=== PATIENT | male | born 1945 | race Caucasian/White ===

== ENCOUNTER 2020-11-18 13:47 | Inpatient (IN) ==
[2020-11-18] MEDS ORDERED: ONDANSETRON INJ 2 MG/ML 2 ML VIAL IV STA (14:18)
[2020-11-18] MEDS ORDERED: SODIUM CHLORIDE 0.9% 1000ML 1,000 ML IV STA (14:18)
--- NOTE | 2020-11-18 14:26 | Emergency Department Note ---
Impression & Plan Pancreatitis, Weakness, Portal vein thrombosis ED Provider Note Provider: Jose Jiménez MD DATE OF SERVICE: 11/18/2020 CHIEF COMPLAINT: Epigastric pain, nausea, weakness HISTORY OF PRESENT ILLNESS: Patient is a 75-year-old gentleman history of smoking and [id number] diabetes presenting here today with reporting over the past weeks developed epigastric discomfort with nausea. States he seemed to be constipated took a laxative yesterday and now has loose stools today. States the pain comes and goes worse with eating. States anytime he eats something he gets nauseous and has more epigastric pain. Irma-Beverly has helped some. Denies any radiation of the lower abdomen or back. Denies any chest pain or shortness of breath. Reports increased generalized fatigue but denies any URI symptoms. States is a chronic smoking cough and is still a smoker. Patient states he was hospitalized for somewhat similar symptoms about 3 weeks ago in [place] and diagnosed with pancreatitis. Had an outpatient MRI a week ago and is scheduled to see a GI doctor over the next several days in [place]. No vomiting is reported. No rashes reported. is otherwise without similar symptoms. Patient states he has never had pancreatitis before this. REVIEW OF SYSTEMS: A total of 10 review of systems was obtained and negative except as stated above in the HPI. PAST MEDICAL HISTORY: As noted above MEDICATIONS: Reviewed home medications SOCIAL HISTORY:smoker, lives at home with PHYSICAL EXAM: GENERAL: alert and oriented in no acute distress on stretcher Head: normocephalic and atraumatic EYES: No injection, discharge or icterus. NECK: Trachea midline. Supple. ENT: Mucous membranes pink and moist. LUNGS: Airway patent. No retractions. Breath sounds with slight expiratory wheeze HEART: Regular rate and rhythm. No chest wall tenderness ABDOMEN: Soft without guarding with some very slight to minimal epigastric discomfort. No lower abdominal tenderness. No flank tenderness. SKIN: Acyanotic, warm, dry, without rashes EXTREMITIES: Without swelling, tenderness or deformity NEUROLOGICAL: No focal deficits. No aphasia. No facial droop or slurred speech. EK bpm normal sinus rhythm. No PVC or PAC. No acute ST segment elevation or depression. Left axis is noted. QTc 432. No priors available. CONTINUOUS CARDIAC MONITORING: was ordered and showed a heart rate of bpm in Patient's laboratory studies and imaging reviewed. Differential includes Appendicitis, testicular torsion, infections, diverticulitis, UTI, obstruction, mesenteric ischemia, aortic pathology, inflammatory bowel disease, renal colic, PUD, pancreatitis, biliary pathology, hernia, volvulus, constipation, as well as other pathologies. IMPRESSION/MEDICAL DECISION MAKING: Patient presents with nausea and epigastric discomfort particular with eating. Recent history of pancreatitis. Patient does endorse nausea now and minimal pain. He declines pain medicine here. Not peritoneal. Records at [place] not available to me here. Will attempt to obtain records from the other facility. Patient is nontoxic-appearing. Afebrile. Blood work and EKG were completed. Lower suspicion is ACS or pulmonary cause. Troponin was sent for completeness. Question possible pancreas inflammation or possible gastritis. Patient given some fluids here. Lyme screen will be sent as well as anaplasmosis given the generalized weakness complaints. Laboratory studies do reveal a leukocytosis of 14.6 but no anemia. No significant electrolyte abnormality noted. No bilirubin elevation or LFT abnormalities. Lyme screen negative as was anaplasmosis smear. Troponin is negative and again I finds unlikely this is cardiac related. Lipase elevation of 1894 again is concerning for pancreatitis. Without a bilirubin elevation find it less likely to be obstructive biliary pathology. Question if his recent change to diabetes medication has prompted these episodes of pancreatitis. CT scan per radiology shows evidence of acute pancreatitis. No fluid collections were noted by radiology. They question a small portal vein thrombus. Some slight dilation of the left lobe of the liver biliary tree were noted as well. Given this his complaints also with need likely to change diabetic medications patient wished for further care here at the hospital. Hospitalists contacted and discussed starting a heparin drip which I ordered given the question of portal vein thrombus.. DIAGNOSIS: Pancreatitis, weakness, portal vein thrombus DISPOSITION: Hospitalist will evaluate Patient was agreeable with this plan. 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 Beliefs That Will Affect Care: None Current Living Situation: Significant Other Other Information That Helps Us Care for You: No Feels Safe at Home: Yes Safety Concerns: Feels Safe At This Time Assistive Devices: Denture - Upper, Denture - Lower and Glasses Allergies Allergies Allergy/AdvReac Type Severity Reaction Status Date / Time No Known Allergies Allergy Unverified 11/18/20 15:19 Home Meds Home Medications Medication Instructions Recorded Confirmed brimonidine 0.2 % eye drops 1 drp OPR BID 11/18/20 11/18/20 dorzolamide 2 % eye drops (Trusopt) 1 drp OPL TID 11/18/20 11/18/20 glipizide 5 mg tablet, extended 5 mg PO BID 11/18/20 11/18/20 release 24 hr (Glucotrol XL) lisinopril 10 mg tablet (Zestril) 10 mg PO QAM 11/18/20 11/18/20 metformin 1,000 mg tablet 1,000 mg PO BID 11/18/20 11/18/20 rosuvastatin 5 mg tablet (Crestor) 5 mg PO HS 11/18/20 11/18/20 semaglutide (Ozempic) 0.25 mg SUBCUT WK 11/18/20 11/18/20 timolol maleate 0.5 % eye drops 1 drp OPR BID 11/18/20 11/18/20 (Timoptic) Results & Data (ED) Vital Signs Vital Signs - 24 hr 11/18/20 13:49 11/18/20 13:59 11/18/20 15:02 Temperature 36.5 C Temperature Source Temporal Artery Scan Pulse Rate 100 H 88 Pulse Rate [Right Finger] 96 H 88 Pulse Rate from SpO2 Sensor Pulse Rhythm Regular Pulse Rhythm [Right Finger] Regular Pulse Strength [Right Finger] Normal Respiratory Rate 18 18 18 Respiratory Effort / Characteristics Non-Labored Spontaneous Respiratory Depth Normal Respiratory Pattern Regular Blood Pressure 127/77 Blood Pressure [Left Arm] 125/74 122/77 Blood Pressure Mean 93 Blood Pressure Mean [Left Arm] 91 92 Blood Pressure Position [Left Arm] Lying Sitting Pulse Oximetry 99 99 98 Oxygen Delivery Method Room Air Room Air Room Air Sepsis Recent Fever Within 48 Hours No Sepsis New/Unexplained Change in Mental Status No Sepsis Action Taken by Nursing No Action Required 11/18/20 16:24 Temperature Temperature Source Pulse Rate 93 H Pulse Rate [Right Finger] Pulse Rate from SpO2 Sensor 92 H Pulse Rhythm Pulse Rhythm [Right Finger] Pulse Strength [Right Finger] Respiratory Rate 15 Respiratory Effort / Characteristics Respiratory Depth Respiratory Pattern Blood Pressure 143/72 H Blood Pressure [Left Arm] Blood Pressure Mean 95 Blood Pressure Mean [Left Arm] Blood Pressure Position [Left Arm] Pulse Oximetry 97 Oxygen Delivery Method Sepsis Recent Fever Within 48 Hours Sepsis New/Unexplained Change in Mental Status Sepsis Action Taken by Nursing Laboratory Data Result diagrams: 11/18/20 13:59 11/18/20 13:59 Lab Results 11/18/20 11/18/20 11/18/20 Range/Units 13:59 13:59 13:59 WBC 14.66 H (4.8-10.8) K/uL RBC 4.55 L (4.7-6.1) M/uL Hgb 14.4 (14.0-18.0) g/dL Hct 41.3 L (42-52) % MCV 90.8 (80-100) fL MCH 31.6 (25-34) pg MCHC 34.9 (32-36) g/dL RDW Std Deviation 41.4 (36.4-46.3) fL RDW Coeff of Shahzad 12.4 (11.5-14.5) % Plt Count 268 (130-400) K/uL MPV 10.6 H (7.4-10.4) fL Immature Gran % (Auto) 0.3 % Neut % (Auto) 64.9 % Lymph % (Auto) 22.6 % Bucks % (Auto) 9.7 % Eos % (Auto) 2.2 % Baso % (Auto) 0.3 % Neut # (Auto) 9.53 H (1.4-6.5) K/uL Lymph # (Auto) 3.31 (1.2-3.4) K/uL Bucks # (Auto) 1.42 H (0.11-0.59) K/uL Eos # (Auto) 0.32 (0-0.5) K/uL Baso # (Auto) 0.04 (0-0.2) K/uL Immature Gran # (Auto) 0.04 H (0.00-0.02) K/uL Sodium 137 (136-145) mmol/L Potassium 4.2 (3.5-5.1) mmol/L Chloride 107 (98-107) mmol/L Carbon Dioxide 24 (21-32) mmol/L Anion Gap 6.0 (3-11) BUN 15 (7-18) mg/dl Creatinine 1.02 (0.6-1.4) mg/dl Est Cr Clr Drug Dosing 72.8 ml/min Est GFR ( Amer) 82.9 ml/min Est GFR (Non-Af Amer) 71.6 ml/min BUN/Creatinine Ratio 14.5 (10-20) Glucose 192 H (70-99) mg/dl Calcium 9.0 (8.5-10.1) mg/dl Total Bilirubin 0.6 (0.2-1) mg/dl AST 11 L (15-37) U/L ALT 22 (12-78) U/L Alkaline Phosphatase 61 (45-117) U/L Troponin I < 0.015 (0-0.045) ng/ml Total Protein 7.9 (6.4-8.2) gm/dl Albumin 3.7 (3.4-5.0) gm/dl Globulin 4.2 H (2.5-4.0) gm/dl Albumin/Globulin Ratio 0.9 (0.9-2) Lipase 1894 H (73-393) U/L Anaplasma Smear See Comment Lyme Disease IgG Ab Negative (Negative) Lyme Disease IgM Ab Negative (Negative) COVID-19 Eval Order SARS-CoV-2 (PCR) (Negative) 11/18/20 11/18/20 11/18/20 Range/Units 13:59 13:59 13:59 WBC (4.8-10.8) K/uL RBC (4.7-6.1) M/uL Hgb (14.0-18.0) g/dL Hct (42-52) % MCV (80-100) fL MCH (25-34) pg MCHC (32-36) g/dL RDW Std Deviation (36.4-46.3) fL RDW Coeff of Shahzad (11.5-14.5) % Plt Count (130-400) K/uL MPV (7.4-10.4) fL Immature Gran % (Auto) % Neut % (Auto) % Lymph % (Auto) % Bucks % (Auto) % Eos % (Auto) % Baso % (Auto) % Neut # (Auto) (1.4-6.5) K/uL Lymph # (Auto) (1.2-3.4) K/uL Bucks # (Auto) (0.11-0.59) K/uL Eos # (Auto) (0-0.5) K/uL Baso # (Auto) (0-0.2) K/uL Immature Gran # (Auto) (0.00-0.02) K/uL Sodium (136-145) mmol/L Potassium (3.5-5.1) mmol/L Chloride (98-107) mmol/L Carbon Dioxide (21-32) mmol/L Anion Gap (3-11) BUN (7-18) mg/dl Creatinine (0.6-1.4) mg/dl Est Cr Clr Drug Dosing ml/min Est GFR ( Amer) ml/min Est GFR (Non-Af Amer) ml/min BUN/Creatinine Ratio (10-20) Glucose (70-99) mg/dl Calcium (8.5-10.1) mg/dl Total Bilirubin (0.2-1) mg/dl AST (15-37) U/L ALT (12-78) U/L Alkaline Phosphatase (45-117) U/L Troponin I (0-0.045) ng/ml Total Protein (6.4-8.2) gm/dl Albumin (3.4-5.0) gm/dl Globulin (2.5-4.0) gm/dl Albumin/Globulin Ratio (0.9-2) Lipase (73-393) U/L Anaplasma Smear Cancelled Lyme Disease IgG Ab (Negative) Lyme Disease IgM Ab (Negative) COVID-19 Eval Order Covid19 at [facility] SARS-CoV-2 (PCR) NEGATIVE (Negative) Administered Medications Dorzolamide HCl (Dorzolamide Hcl 2% Oph Soln 10 Ml Btl) 1 drops OPL TID LORI Stop: 12/18/20 20:59 Last Admin: 11/18/20 20:41 Dose: 1 drops Documented by: [id number] Heparin Sodium/Dextrose (Heparin Sodium/Dextrose) 25,000 units in 500 mls @ 20 mls/hr IV .Q24H LORI; Protocol Stop: 12/18/20 16:59 Last Titration: 11/18/20 18:57 Dose: 1,000 units/hr, 20 mls/hr Documented by: [id number] Cosigned by: [id number] Admin: 11/18/20 17:10 Dose: 1,000 units/hr, 20 mls/hr Documented by: [id number] Cosigned by: [id number] Insulin Aspart (Insulin Aspart 100 Units/Ml 3 Ml Pen) 0 units SC Q6 LORI Stop: 12/18/20 18:59 Last Admin: 11/18/20 19:40 Dose: Not Given Documented by: [id number] Cosigned by: [id number] Nicotine (Nicotine 21 Mg/24 Hr Tdsy) 21 mg TD QAM LORI Stop: 12/18/20 16:44 Last Admin: 11/18/20 17:10 Dose: 21 mg Documented by: [id number] Rosuvastatin Calcium (Rosuvastatin Calcium 5 Mg Tab) 5 mg PO HS LORI Stop: 12/18/20 20:59 Last Admin: 11/18/20 20:43 Dose: 5 mg Documented by: [id number] Timolol Maleate (Timolol Maleate 0.5% Op Soln 5 Ml Btl) 1 drops OP BID LORI Stop: 12/18/20 20:59 Last Admin: 11/18/20 20:41 Dose: 1 drops Documented by: [id number] Discontinued Medications Heparin Sodium/Dextrose (Heparin Iv Adult Wt-Based Low-Dose *No* Bolus Protocol) 1 ea N/A ONE ONE; Protocol Stop: 11/18/20 16:55 Last Admin: 11/18/20 18:53 Dose: Not Given Documented by: [id number] Sodium Chloride (Nss 1000ml) 1,000 mls @ 999 mls/hr IV .Q1H1M STA Stop: 11/18/20 15:18 Last Infusion: 11/18/20 15:35 Dose: 0 mls/hr Documented by: [id number] Admin: 11/18/20 14:28 Dose: 999 mls/hr Documented by: [id number] Ioversol (Optiray 320 100ml) 94 ml IV ONCE ONE Stop: 11/18/20 15:49 Last Admin: 11/18/20 15:48 Dose: 94 ml Documented by: [id number] Ondansetron HCl (Ondansetron Inj 2 Mg/Ml 2 Ml Vial) 4 mg IV NOW STA Stop: 11/18/20 14:19 Last Admin: 11/18/20 14:29 Dose: 4 mg Documented by: [id number] Imaging Data Radiologist's Impression: Abdomen/Pelvis CT 11/18/20 14:18 CT abd pelvis IV con only CLINICAL HISTORY: epigastric pain, nausea, hx pancreatitis COMPARISON STUDY: None. TECHNIQUE: A dose lowering technique was utilized adhering to the principles of ALARA. CT DOSE: 564.18 mGy.cm FINDINGS: Lower chest: Limited evaluation of lung bases shows minimal atelectasis at dependent portions of bilateral lower lobes. No large infiltrates or consolidative lesions are seen.. Liver: Liver is normal in size with mild diffuse decrease in attenuation of its parenchyma. 6 mm hypoattenuating lesion is seen within the right liver lobe. Minimal prominence of the central intrahepatic biliary duct are seen within left lobe of the liver. Gallbladder: Is contracted which significantly limits evaluation. Spleen: Normal in size and attenuation. Pancreas: Lobulated contour of the pancreatic gland is preserved. Mild hazy fat stranding is seen surrounding the pancreatic head and body which might represent acute pancreatitis or sequela from recent pancreatitis. No definite peripancr eatic or intrapancreatic hypoattenuating collections seen. Prominence of the pancreatic duct is seen within pancreatic body and head. 4 mm calculus is seen within main pancreatic duct at the region of pancreatic head (2/33). Also there is few calculi are seen within distal aspect of the common bile duct coursing through pancreatic head associated with minimal prominence of the more proximal common biliary duct measuring up to 7 mm in size. Adrenal glands: Unremarkable. Kidneys: There is symmetric renal cortical enhancement. The kidneys are normal in size without hydronephrosis.Punctate nonobstructive nephrolithiasis is seen in bilaterally. Few cortical renal cysts are also seen within right and left kidneys, largest is measuring 2.0 cm and seen on the right. Pelvic viscera: Urinary bladder is partially filled with urine and show mild diffuse thickening of its wall which could be due to long-standing enlarged prostate gland. Bowel: The small bowel and colon are normal in course and caliber. Appendix shows normal morphology and gas filled. Mild diverticulosis of sigmoid colon is seen without evidence of diverticulitis. Peritoneum: There is no intraperitoneal free air or abdominal ascites. Vasculature: The abdominal aorta is normal in course and caliber. Focal filling defect is seen within proximal aspect of the portal vein at its confluence with splenic vein which could be due to inflammatory process within adjacent pancreas (2/20). Above-mentioned findings are better visualized on sagittal reconstruction (image 269 out of 513). Adenopathy: Few small retroperitoneal lymph nodes are seen, measuring less than 1 cm in short axis and nonpathological by CT size criteria. Skeletal structures: Mild degenerative changes of the spine. IMPRESSION: 1. Inflammatory changes surrounding the pancreas and calcifications/stones within proximal aspect of the pancreatic duct and distal common bile duct. No peripancreatic fluid collection or evidence of necrosis of pancreatic parenchyma is seen at this time.. Small filling defect is seen within portal vein, at the connection with splenic vein likely representing portal vein thrombosis. Findings will be sent to the emergency department. 2. Hepatic steatosis. Mild dilatation of the central intrahepatic biliary ducts within left lobe of the liver. Further evaluation with ultrasound might be considered if clinically indicated. 3. Contracted gallbladder which limits evaluation. 4. Nondilated loops of bowel. Normal appendix. 5. The rest of findings as above. ACT 112: Negative or not required by law. The above report was generated using voice recognition software. It may contain grammatical, syntax or spelling errors. Electronically signed by: Grisel Roberts DO 11/18/2020 4:18 PM Discharge Plan Visit Data Chief Complaint: Nausea Stated Complaint: CRAMPS,NAUSEA,WEAK ED Provider: Jose Jiménez Discharge Problem: Pancreatitis, Weakness, Portal vein thrombosis Patient Disposition: Admitted As Inpatient Discharge Instructions Interventions: ED Discharge Assessment Last Done: 11/18/20 17:55
[2020-11-18 14:28] LABS: Basophils # (auto) 0.04 K/uL (0-0.2); Basophils % (auto) 0.3 %; Eosinophils # (auto) 0.32 K/uL (0-0.5); Eosinophils % (auto) 2.2 %; Hematocrit (blood only) 41.3 % (42-52); Hemoglobin 14.4 g/dL (14.0-18.0); Immature Granulocytes # (auto) 0.04 K/uL (0.00-0.02); Immature Granulocytes % (auto) 0.3 %; Lymphocytes # (auto) 3.31 K/uL (1.2-3.4); Lymphocytes % (auto) 22.6 %; Mean Corpuscular Hemoglobin 31.6 pg (25-34); Mean Corpuscular Hgb Conc 34.9 g/dL (32-36); Mean Corpuscular Volume 90.8 fL (80-100); Mean Platelet Volume 10.6 fL (7.4-10.4); Monocytes # (auto) 1.42 K/uL (0.11-0.59); Monocytes % (auto) 9.7 %; Neutrophils # (auto) 9.53 K/uL (1.4-6.5); Neutrophils % (auto) 64.9 %; Platelet Count 268 K/uL (130-400); RDW Coefficient of Variation 12.4 % (11.5-14.5); RDW Standard Deviation 41.4 fL (36.4-46.3); Red Blood Count 4.55 M/uL (4.7-6.1); White Blood Count 14.66 K/uL (4.8-10.8)
[2020-11-18 14:38] LABS: Alanine Aminotransferase 22 U/L (12-78); Albumin Level 3.7 gm/dl (3.4-5.0); BUN Creatinine Ratio 14.5 (10-20); Blood Urea Nitrogen 15 mg/dl (7-18); Carbon Dioxide 24 mmol/L (21-32); Chloride 107 mmol/L (98-107); Creatinine Clr Calc Pharmacy 72.8 ml/min; Est GFR (African American) 82.9 ml/min; Est GFR (Non-African American) 71.6 ml/min; Glucose 192 mg/dl (70-99); Potassium 4.2 mmol/L (3.5-5.1); Sodium 137 mmol/L (136-145)
[2020-11-18 14:44] LABS: Albumin Globulin Ratio 0.9 (0.9-2); Alkaline Phosphatase 61 U/L (45-117); Aspartate Aminotransferase 11 U/L (15-37); Bilirubin,Total 0.6 mg/dl (0.2-1); Globulin 4.2 gm/dl (2.5-4.0); Lipase 1894 U/L (73-393); Total Protein 7.9 gm/dl (6.4-8.2); Troponin I < 0.015 ng/ml (0-0.045)
[2020-11-18 15:23] LABS: Lyme Ab IgG w/WB Rflx Negative (Negative); Lyme Ab IgM w/WB Rflx Negative (Negative)
[2020-11-18] MEDS ORDERED: OPTIRAY 320 100ml IV ONE (15:48)
--- NOTE | 2020-11-18 16:20 | CT Scan Report ---
CT abd pelvis IV con only CLINICAL HISTORY: epigastric pain, nausea, hx pancreatitis COMPARISON STUDY: None. TECHNIQUE: A dose lowering technique was utilized adhering to the principles of ALARA. CT DOSE: 564.18 mGy.cm FINDINGS: Lower chest: Limited evaluation of lung bases shows minimal atelectasis at dependent portions of bila teral lower lobes. No large infiltrates or consolidative lesions are seen.. Liver: Liver is normal in size with mild diffuse decrease in attenuation of its parenchyma. 6 mm hypo attenuating lesion is seen within the right liver lobe. Minimal prominence of the central intrahepati c biliary duct are seen within left lobe of the liver. Gallbladder: Is contracted which significantly limits evaluation. Spleen: Normal in size and attenuation. Pancreas: Lobulated contour of the pancreatic gland is preserved. Mild hazy fat stranding is seen demar rounding the pancreatic head and body which might represent acute pancreatitis or sequela from recent pancreatitis. No definite peripancreatic or intrapancreatic hypoattenuating collections seen. Prominence of the pancreatic duct is seen within pancreatic body and head. 4 mm calculus is seen with in main pancreatic duct at the region of pancreatic head (2/33). Also there is few calculi are seen w ithin distal aspect of the common bile duct coursing through pancreatic head associated with minimal prominence of the more proximal common biliary duct measuring up to 7 mm in size. Adrenal glands: Unremarkable. Kidneys: There is symmetric renal cortical enhancement. The kidneys are normal in size without hydron ephrosis.Punctate nonobstructive nephrolithiasis is seen in bilaterally. Few cortical renal cysts are also seen within right and left kidneys, largest is measuring 2.0 cm and seen on the right. Pelvic viscera: Urinary bladder is partially filled with urine and show mild diffuse thickening of it s wall which could be due to long-standing enlarged prostate gland. Bowel: The small bowel and colon are normal in course and caliber. Appendix shows normal morphology a nd gas filled. Mild diverticulosis of sigmoid colon is seen without evidence of diverticulitis. Peritoneum: There is no intraperitoneal free air or abdominal ascites. Vasculature: The abdominal aorta is normal in course and caliber. Focal filling defect is seen within proximal aspect of the portal vein at its confluence with splenic vein which could be due to inflammatory process within adjacent pancreas (2/20). Above-mentioned fin dings are better visualized on sagittal reconstruction (image 269 out of 513). Adenopathy: Few small retroperitoneal lymph nodes are seen, measuring less than 1 cm in short axis an d nonpathological by CT size criteria. Skeletal structures: Mild degenerative changes of the spine. IMPRESSION: 1. Inflammatory changes surrounding the pancreas and calcifications/stones within proximal aspect of the pancreatic duct and distal common bile duct. No peripancreatic fluid collection or evidence of n ecrosis of pancreatic parenchyma is seen at this time.. Small filling defect is seen within portal ve in, at the connection with splenic vein likely representing portal vein thrombosis. Findings will be sent to the emergency department. 2. Hepatic steatosis. Mild dilatation of the central intrahepatic biliary ducts within left lobe of the liver. Further evaluation with ultrasound might be considered if clinically indicated. 3. Contracted gallbladder which limits evaluation. 4. Nondilated loops of bowel. Normal appendix. 5. The rest of findings as above. ACT 112: Negative or not required by law. The above report was generated using voice recognition software. It may contain grammatical, syntax o r spelling errors. Electronically signed by: Grisel Roberts DO 11/18/2020 4:18 PM
[2020-11-18 16:35] LABS: Appearance Urine Clear (Clear); Bilirubin Urine Negative (Negative); Blood Urine Negative (Negative); Color Urine Yellow; Glucose Urine UA Negative (Negative); Ketones Urine Negative (Negative); Leukocyte Esterase Urine Negative (Negative); Nitrite Urine Negative (Negative); Protein Urine Negative (Negative); Specific Gravity Urine 1.017 (1.000-1.030); Urobilinogen Urine Negative (Negative)
[2020-11-18] MEDS ORDERED: Heparin IV Adult Wt-Based Low-Dose *NO* Bolus Protocol ONE (16:54)
[2020-11-18] MEDS ORDERED: HEPARIN SODIUM/DEXTROSE 25,000 UNITS/500 ML BAG IV SCH (17:00)
--- NOTE | 2020-11-18 17:07 | Electrocardiogram Report ---
Test Reason : Blood Pressure : / mmHG Vent. Rate : 092 BPM Atrial Rate : 092 BPM P-R Int : 204 ms QRS Dur : 086 ms QT Int : 350 ms P-R-T Axes : 072 -42 068 degrees QTc Int : 432 ms Poor data quality, interpretation may be adversely affected Normal sinus rhythm with 1st degree A-V block Left axis deviation Abnormal ECG No previous ECGs available Confirmed by Mir Louise ([id number]) on 11/18/2020 5:06:58 PM Referred By: REFERRED SELF Confirmed By:Mir Louise
--- NOTE | 2020-11-18 17:07 | History & Physical Report ---
Date of Service November 18, 2020 Assessment & Plan (1) Pancreatitis: Plan: Patient is a pleasant 75 yo male who is admitted with recurrent pancreatitis. will be placed on NPO IVF. and will monitor. Ozempic may be a culprit. will likely need to hold this medication (2) Portal vein thrombosis: Plan: Found incifiental finding. Azeem place on IV heparin (3) Type 2 diabetes mellitus: Plan: will obtain A1C. consult glycemic control History of Present Illness Chief Complaint: pancreatitis Primary Care Provider: Chucho Phoenix 75 yo male who was recently admitted for 3 days with pancreatitis at an outside facilty 4 weeks ago presents to the hospital with 1 week presentation of worsening epigastirc abdominal pain that worsens with eating. Patient reports being constipated and took a laxative yesterday. Now has loose stools today. States the pain comes and goes but worsens after eating. It is accompanied by nausea. [place] has helped some. Denies any radiation of the lower abdomen or back. Denies any chest pain or shortness of breath. Duing this time, patient reports increased fatigue. Had an outpatient MRI a week ago and is scheduled to see a GI doctor over the next several days in [place]. No vomiting is reported. No rashes reported. is otherwise without similar symptoms. Patient states he has never had pancreatitis before his prior episode. Patient denies fever, chills, nausea, vomiting. Allergies Allergy/AdvReac Type Severity Reaction Status Date / Time No Known Allergies Allergy Unverified 11/18/20 15:19 Home Medications Medication Instructions Recorded Confirmed Type brimonidine 0.2 % eye drops 1 drp OPR BID 11/18/20 11/18/20 History dorzolamide 2 % eye drops (Trusopt) 1 drp OPL TID 11/18/20 11/18/20 History glipizide 5 mg tablet, extended 5 mg PO BID 11/18/20 11/18/20 History release 24 hr (Glucotrol XL) lisinopril 10 mg tablet (Zestril) 10 mg PO QAM 11/18/20 11/18/20 History metformin 1,000 mg tablet 1,000 mg PO BID 11/18/20 11/18/20 History rosuvastatin 5 mg tablet (Crestor) 5 mg PO HS 11/18/20 11/18/20 History semaglutide (Ozempic) 0.25 mg SUBCUT WK 11/18/20 11/18/20 History timolol maleate 0.5 % eye drops 1 drp OPR BID 11/18/20 11/18/20 History (Timoptic) Past Med/Surg History Social History Smoking Status: Current every day smoker Cigarettes Per Day: 1-1.5 packs per day; Do You Dip or Chew Tobacco: No; Hx Alcohol Use: Yes Hx Substance Use: No Preferred Language: Greenlandic Communication Ability: Effective Supervisor [employer] Required: No Beliefs That Will Affect Care: None Current Living Situation: Significant Other Other Information That Helps Us Care for You: No Feels Safe at Home: Yes Safety Concerns: Feels Safe At This Time Assistive Devices: Denture - Upper, Denture - Lower and Glasses Review of Systems Constitutional: no fever and no body aches Eyes: no blind spots and no diplopia Ear, Nose, Mouth, Throat: no ear pain and no ear trauma Respiratory: no cough and no change in sputum Cardiovascular: no chest pain Gastrointestinal: + abdominal pain and + nausea Genitourinary: no dysuria Musculoskeletal: no radicular pain Integumentary: no rash Neurologic: no gait abnormality and no falls Psychiatric: no behavioral changes Endocrine: no fatigue Allergy / Immunological: no lip swelling Physical Exam Constitutional: WD/WN, vitals as above Eyes: PERRL, conjunctivae normal, anicteric sclerae ENMT: external ear and nose normal, oropharynx normal Neck: trachea midline, no thyromegaly Respiratory: normal respiratory effort, lungs clear to auscultation Cardiovascular: RRR, no murmur, no edema Gastrointestinal (Abdomen): normal bowel sounds, soft, nontender, no hepatosplenomegaly Musculoskeletal: no cyanosis or clubbing, extremities motor strength 5/5 Skin: no rashes, warm and dry Neurologic: PERRL, EOMI, accommodation nl, no face palsy, no dysarthria Psychiatric: A+Ox3, euthymic affect Lymphatic: no cervical or axillary lymphadenopathy Results & Data Results & Data ([facility]) Vital Signs (Past 12 Hours) Vital Signs Temp Pulse Pulse Resp BP BP Pulse Ox 11/18/20 16:24 93 H 15 143/72 H 97 11/18/20 15:02 88 88 18 122/77 98 11/18/20 13:59 96 H 18 125/74 99 11/18/20 13:49 36.5 C 100 H 18 127/77 99 PG Care Time/CCT Total # of Minutes Spent Total Time Spent with Patient: Total time spent is greater than 50% in coordination of care (as documented) at patient's floor/unit and/or counseling patient: Coding Level of Care Code 23430 Initial Inpt Care Lvl 3 Diagnoses Pancreatitis K85.90 Chronicity: acute Pancreatitis type: unspecified pancreatitis type Portal vein thrombosis I81 Type 2 diabetes mellitus E11.9 (1) Pancreatitis Chronicity: acute Pancreatitis type: unspecified pancreatitis type
[2020-11-18] MEDS: NICOTINE 21 MG/24 HR TDSY TD SCH (17:10)
[2020-11-18] MEDS ORDERED: PHARMACY GLYCEMIC MGMT CONSULT PRN (17:18)
[2020-11-18] MEDS ORDERED: ACETAMINOPHEN 325 MG TAB PO PRN (17:23)
[2020-11-18] MEDS ORDERED: MoRPHine SULFATE 2 MG/ML CARP IV PRN (18:07)
[2020-11-18] MEDS ORDERED: ONDANSETRON INJ 2 MG/ML 2 ML VIAL IV PRN (18:07)
[2020-11-18] MEDS ORDERED: DEXTROSE 50% 50 ML SYRINGE IV PRN (19:00)
[2020-11-18] MEDS ORDERED: GLUCAGON FOR INJ 1 MG VIAL IM PRN (19:00)
[2020-11-18] MEDS ORDERED: CARBOHYDRATES FOR HYPOGLYCEMIA PO PRN (19:00)
[2020-11-18] MEDS ORDERED: GLUCOSE 10 TABS/TUBE PO PRN (19:00)
[2020-11-18] MEDS ORDERED: GLUCOSE 40% GEL 15 GM TUBE PO PRN (19:00)
[2020-11-18] MEDS: INSULIN ASPART 100 UNITS/ML 3 ML PEN SC SCH (19:40)
[2020-11-18] MEDS: TIMOLOL MALEATE 0.5% OP SOLN 5 ML BTL OP SCH (20:41)
[2020-11-18] MEDS: DORZOLAMIDE HCL 2% OPH SOLN 10 ML BTL OPL SCH (20:41)
[2020-11-18] MEDS: ROSUVASTATIN CALCIUM 5 MG TAB PO SCH (20:43)
[2020-11-18] MEDS ORDERED: BRIMONIDINE TART 0.2% OP SOLN PER DROP CHARGE OPR SCH (21:00)
[2020-11-18] MEDS: BRIMONIDINE TARTRATE 0.2% 5ML OPR SCH (22:15)
[2020-11-18 23:06] LABS: Partial Thromboplastin Ratio 1.2; Partial Thromboplastin Time 32.4 Seconds (21.0-31.0)
[2020-11-18] MEDS ORDERED: HEPARIN IV BOLUS 3,000 UNITS in SYRINGE 0 ML IV ONE (23:09)
[2020-11-19] MEDS ORDERED: HEPARIN IV BOLUS 3,000 UNITS in SYRINGE 0 ML IV ONE (00:15)
[2020-11-19] MEDS: INSULIN ASPART 100 UNITS/ML 3 ML PEN SC SCH ×5 (00:22→20:41)
[2020-11-19 06:26] LABS: Basophils # (auto) 0.05 K/uL (0-0.2); Basophils % (auto) 0.5 %; Eosinophils # (auto) 0.29 K/uL (0-0.5); Eosinophils % (auto) 2.8 %; Hematocrit (blood only) 39.7 % (42-52); Hemoglobin 13.5 g/dL (14.0-18.0); Immature Granulocytes # (auto) 0.02 K/uL (0.00-0.02); Immature Granulocytes % (auto) 0.2 %; Lymphocytes # (auto) 2.86 K/uL (1.2-3.4); Lymphocytes % (auto) 27.5 %; Mean Corpuscular Hemoglobin 30.9 pg (25-34); Mean Corpuscular Volume 90.8 fL (80-100); Mean Platelet Volume 10.4 fL (7.4-10.4); Monocytes % (auto) 9.6 %; Neutrophils # (auto) 6.18 K/uL (1.4-6.5); Neutrophils % (auto) 59.4 %; Platelet Count 255 K/uL (130-400); RDW Coefficient of Variation 12.3 % (11.5-14.5); Red Blood Count 4.37 M/uL (4.7-6.1)
[2020-11-19 06:32] LABS: Partial Thromboplastin Ratio 1.5; Partial Thromboplastin Time 38.6 Seconds (21.0-31.0)
[2020-11-19 06:43] LABS: Albumin Level 3.1 gm/dl (3.4-5.0); BUN Creatinine Ratio 13.2 (10-20); Calcium 8.6 mg/dl (8.5-10.1); Creatinine Clr Calc Pharmacy 78.9 ml/min; Est GFR (African American) 91.6 ml/min; Potassium 4.1 mmol/L (3.5-5.1)
[2020-11-19 06:46] LABS: Albumin Globulin Ratio 0.8 (0.9-2); Bilirubin,Total 0.6 mg/dl (0.2-1); Globulin 3.9 gm/dl (2.5-4.0)
[2020-11-19 07:38] LABS: Estimated Average Glucose 180 mg/dl; Hemoglobin A1C 7.9 % (4.5-5.6)
[2020-11-19] MEDS: LACTATED RINGER'S 1,000 ML IV SCH ×3 (07:58→17:55)
[2020-11-19] MEDS: TIMOLOL MALEATE 0.5% OP SOLN 5 ML BTL OP SCH ×2 (08:00→20:37)
[2020-11-19] MEDS: DORZOLAMIDE HCL 2% OPH SOLN 10 ML BTL OPL SCH ×3 (08:00→20:37)
[2020-11-19] MEDS: BRIMONIDINE TARTRATE 0.2% 5ML OPR SCH ×2 (08:01→20:37)
[2020-11-19] MEDS ORDERED: lisinopril 10 MG TAB PO SCH (09:00)
[2020-11-19] MEDS: NICOTINE 21 MG/24 HR TDSY TD SCH (09:03)
--- NOTE | 2020-11-19 11:58 | Hospitalist Progress Note ---
Date of Service November 19, 2020 Assessment & Plan (1) Pancreatitis: Plan: LFTs stable. No significant biliary dilatation on CT. No significant alcohol use. Triglycerides 89. Advance diet to full liquids. Can advance to full low fat diet for supper if tolerating lunch without worsening pain. No IV fluids given overnight however lipase downtrending and patient symptoms mild. LR @ 200 ml/hr x3 L. Agree with admitting physician and most likely cause is his Ozempic which he will discontinue and follow up with gastroenterology as outpatient. No further GLP-1 or DPP-4s recommended. Will consider SGLT-2 on discharge. If ongoing problems would also consider switching glipizide for insulin as penitentiary use of sulfonylureas has also been associated with pancreatitis. (2) Portal vein thrombosis: Plan: Suspect secondary to pancreatitis ongoing for weeks. Switch from IV heparin to apixaban tonight (Xarelto also has been associated with pancreatitis). Anticoagulation for 3-6 months depending on pancreatitis course. If chronic pancreatitis consider longer course. (3) Type 2 diabetes mellitus: Plan: HbA1C 7.9 consult glycemic control (4) Hypertension: Plan: Hold lisinopril given low normal BP Admission and Anticipated Discharge Date Admission Date: November 18, 2020 Anticipated date of discharge: 11/20/20 Subjective Patient reports improving epigastric pain overnight. No nausea or vomiting. Feels starving and wants to start eating. Continued on Ozempic despite prior episode of pancreatitis. Reports having MRI as outpatient (presumably MRCP), results not available but reports only been told he has some cysts which were nothing to worry about. Review of Systems Review of Systems: All systems reviewed & are unremarkable except as noted in HPI & below Physical Exam Constitutional: WD/WN, vitals as above ENMT: external ear and nose normal, oropharynx normal Respiratory: normal respiratory effort, lungs clear to auscultation Cardiovascular: RRR, no murmur, no edema Gastrointestinal (Abdomen): Percussion/Palpation: + abdomen tender (epigastric) and abdomen soft; no guarding and abdomen not rigid Musculoskeletal: no cyanosis or clubbing, extremities motor strength 5/5 Skin: no rashes, warm and dry Neurologic: moves all extremities and awake; not confused Psychiatric: A+Ox3, euthymic affect Results & Data Results & Data ([facility]) Vital Signs (Past 12 Hours) Vital Signs Temp Pulse Pulse Pulse Resp BP Pulse Ox 11/19/20 08:13 36.5 C 73 17 128/74 98 11/19/20 07:48 71 11/19/20 03:44 37.0 C 78 18 100/51 L 96 11/19/20 00:39 95 H 11/18/20 23:57 37.2 C 100 H 18 99/62 L 95 PG Care Time/CCT Total # of Minutes Spent Total Time Spent with Patient: Total time spent is greater than 50% in coordination of care (as documented) at patient's floor/unit and/or counseling patient: Coding Level of Care Code 27827 Subseq Hosp Care Lvl 2 Diagnoses Pancreatitis K85.90 Acute pancreatitis complication: no infection or necrosis Chronicity: acute Pancreatitis type: unspecified pancreatitis type Portal vein thrombosis I81 Type 2 diabetes mellitus E11.9 Hypertension I10 (1) Pancreatitis Acute pancreatitis complication: no infection or necrosis Chronicity: acute Pancreatitis type: unspecified pancreatitis type Qualified Code(s): K85.90 - Acute pancreatitis without necrosis or infection, unspecified
[2020-11-19] MEDS ORDERED: INSULIN GLARGINE SOLOSTAR 100 UNITS/ML 3 ML PEN SC ONE (12:30)
[2020-11-19 13:13] LABS: Partial Thromboplastin Ratio 1.4; Partial Thromboplastin Time 36.7 Seconds (21.0-31.0)
--- NOTE | 2020-11-19 14:09 | Pharmacy Report ---
Pharmacy Glycemic Short Note 2 - Date of Service November 19, 2020 - Glycemic Short BSG Results (Last 24 hours): 11/18/20 11/18/20 11/19/20 13:59 19:34 00:20 Glucose 192 H POC Glucose 158 H 202 H 11/19/20 11/19/20 11/19/20 06:02 06:07 11:40 Glucose 183 H POC Glucose 191 H 254 H OUTPATIENT ANTIDIABETIC REGIMEN: * glipizide, metformin, ozempic * A1c 7.9% 11/2020 ASSESSMENT: * 75 year old admitted with pancreatitis. Type 2 diabetic at home. Pharmacy consulted for glycemic management * Fasting BSG 183 mg/dL - continues NPO status, plan to use just correctional insulin this AM * Lunch BSG trending upward, diet started - will give one time dose of Lantus 15 units x 1 PLAN FOR INPATIENT GLYCEMIC CONTROL: * Hold outpatient oral diabetes medications * Basal insulin * Lantus 15 units x 1 * Bolus insulin * NovoLog per scale ACHS or Q6hrs while NPO * Goal Range: Low 110 mg/dL - High 140 mg/dL * Correction Factor: 25 mg/dL/unit * Nutritional / Prandial insulin per carb ratio of 1 unit per 8 grams CHO consumed PLAN FOR DISCHARGE: * A1c 7.9% - goal <7 * Reasonable to continue home diabetic agents on discharge as long as no contraindications present
[2020-11-19 19:44] LABS: Partial Thromboplastin Time 26.5 Seconds (21.0-31.0)
[2020-11-19] MEDS: APIXABAN 5 MG TABLET PO SCH (20:36)
[2020-11-19] MEDS: ROSUVASTATIN CALCIUM 5 MG TAB PO SCH (20:36)
[2020-11-19] MEDS ORDERED: HEPARIN DRIP~STOP ORDER ONE (21:00)
[2020-11-19] MEDS ORDERED: APIXABAN 2.5 MG TAB PO SCH (21:00)
[2020-11-20 07:58] LABS: Hemoglobin 13.8 g/dL (14.0-18.0); Mean Corpuscular Hemoglobin 31.2 pg (25-34); Mean Corpuscular Hgb Conc 34.5 g/dL (32-36); Mean Corpuscular Volume 90.5 fL (80-100); Mean Platelet Volume 10.4 fL (7.4-10.4); Platelet Count 281 K/uL (130-400); RDW Coefficient of Variation 12.2 % (11.5-14.5); RDW Standard Deviation 40.4 fL (36.4-46.3); Red Blood Count 4.42 M/uL (4.7-6.1); White Blood Count 9.75 K/uL (4.8-10.8)
[2020-11-20] MEDS: NICOTINE 21 MG/24 HR TDSY TD SCH (08:09)
[2020-11-20] MEDS: APIXABAN 5 MG TABLET PO SCH (08:09)
[2020-11-20] MEDS: TIMOLOL MALEATE 0.5% OP SOLN 5 ML BTL OP SCH (08:10)
[2020-11-20] MEDS: DORZOLAMIDE HCL 2% OPH SOLN 10 ML BTL OPL SCH (08:10)
[2020-11-20] MEDS: BRIMONIDINE TARTRATE 0.2% 5ML OPR SCH (08:10)
[2020-11-20 08:33] LABS: Albumin Level 3.2 gm/dl (3.4-5.0); BUN Creatinine Ratio 12.5 (10-20); Calcium 8.9 mg/dl (8.5-10.1); Creatinine Clr Calc Pharmacy 85.3 ml/min; Est GFR (African American) 97.8 ml/min; Est GFR (Non-African American) 84.4 ml/min; Potassium 4.1 mmol/L (3.5-5.1)
[2020-11-20 08:36] LABS: Albumin Globulin Ratio 0.8 (0.9-2); Bilirubin,Total 0.6 mg/dl (0.2-1); Globulin 4.1 gm/dl (2.5-4.0); Total Protein 7.3 gm/dl (6.4-8.2)
[2020-11-20] MEDS: INSULIN ASPART 100 UNITS/ML 3 ML PEN SC SCH (08:48)
[2020-11-20] MEDS ORDERED: INSULIN GLARGINE SOLOSTAR 100 UNITS/ML 3 ML PEN SC SCH (09:00)
--- NOTE | 2020-11-20 09:24 | Discharge Summary ---
Date of Service November 20, 2020 Admission HPI Per Admitting Provider 75 yo male who was recently admitted for 3 days with pancreatitis at an outside facilty 4 weeks ago presents to the hospital with 1 week presentation of worsening epigastirc abdominal pain that worsens with eating. Patient reports being constipated and took a laxative yesterday. Now has loose stools today. States the pain comes and goes but worsens after eating. It is accompanied by nausea. [place] has helped some. Denies any radiation of the lower abdomen or back. Denies any chest pain or shortness of breath. Duing this time, patient reports increased fatigue. Had an outpatient MRI a week ago and is scheduled to see a GI doctor over the next several days in [place]. No vomiting is reported. No rashes reported. is otherwise without similar symptoms. Patient states he has never had pancreatitis before his prior episode. Patient denies fever, chills, nausea, vomiting. Principal Diagnosis Pancreatitis Portal Vein Thrombosis Discharge Exam Constitutional WD/WN, vitals as above ENMT external ear and nose normal, oropharynx normal Respiratory normal respiratory effort, lungs clear to auscultation Cardiovascular RRR, no murmur, no edema Gastrointestinal (Abdomen) Percussion/Palpation: + abdomen tender (mild epigastric) and abdomen soft; no guarding and abdomen not rigid Musculoskeletal no cyanosis or clubbing, extremities motor strength 5/5 Skin no rashes, warm and dry Neurologic moves all extremities and awake; not confused Psychiatric A+Ox3, euthymic affect Discharge Data Allergies Allergy/AdvReac Type Severity Reaction Status Date / Time No Known Allergies Allergy Unverified 11/18/20 15:19 Ordered Studies 11/18/20 14:18 CT abd pelvis IV con only Stat IMPRESSION: 1. Inflammatory changes surrounding the pancreas and calcifications/stones within proximal aspect of the pancreatic duct and distal common bile duct. No peripancreatic fluid collection or evidence of necrosis of pancreatic parenchyma is seen at this time.. Small filling defect is seen within portal vein, at the connection with splenic vein likely representing portal vein thrombosis. Findings will be sent to the emergency department. 2. Hepatic steatosis. Mild dilatation of the central intrahepatic biliary ducts within left lobe of the liver. Further evaluation with ultrasound might be considered if clinically indicated. 3. Contracted gallbladder which limits evaluation. 4. Nondilated loops of bowel. Normal appendix. 5. The rest of findings as above. Hospital Course (1) Pancreatitis: (2) Portal vein thrombosis: (3) Type 2 diabetes mellitus: (4) Hypertension: lisset Kulkarni is a 75 year old male admitted to [facility] from November 18 - 2020 due to epigastric pain after recent pancreatitis. He was diagnosed with Acute pancreatitis. Triglycerides and liver function tests were normal. CT did not show any significant biliary dilatation. Suspect most likely this is secondary to Ozempic and recommend discontinuing this. Patient switched to Jardiance for diabetes control but advised switching to insulin if he continues to get pancreatitis. He was also diagnosed with portal vein thrombosis seen on CT - suspect secondary to pancreatitis. He was started on apixaban. Recommend treatment with for 3-6 months. Total Time Total Time Spent Total Time Spent (In Minutes): 50 Discharge Plan Discharge Items Patient Disposition: Home - Self-Care Reason For Visit: PANCREATITIS Discharge Diagnosis: Pancreatitis Portal Vein Thrombosis Activity: Resume your previous activity Non-emergency contact: Primary Care Provider Call non-emergency contact if: you have any medication questions and your symptoms worsen Follow-up/Referrals: Chucho Phoenix PA-C [Primary Care Provider] - 11/26/20 10:00 am Diet: Low Fat Addtl Attending Provider Instructions: You were admitted to [facility] from November 18 - 2020 due to epigastric pain after recent pancreatitis. You were diagnosed with Acute pancreatitis. Triglycerides and liver function tests were normal. Suspect most likely this is secondary to your Ozempic medication for your diabetes and recommend discontinuing this. To control your diabetes will switch to Jardiance. If you continue to have problems with pancreatitis recommend switching glipizide for insulin. You were also diagnosed with portal vein thrombosis - suspect this is secondary to your pancreatitis. Recommend treatment with apixaban for 3-6 months. Pending Studies at Discharge: No Stand-Alone Forms: [facility], Smoking Cessation Medications and DC Order Prescriptions: New Jardiance 10 mg tablet 10 mg PO DAILY Qty: 30 RF: 0 apixaban 5 mg tablet See Rx Instructions .ROUTE .COMPLEX Qty: 72 RF: 0 Continued glipizide [Glucotrol XL] 5 mg tablet extended release 24hr 5 mg PO BID RF: 0 metformin 1,000 mg tablet 1,000 mg PO BID RF: 0 lisinopril [Zestril] 10 mg tablet 10 mg PO QAM RF: 0 brimonidine 0.2 % drops 1 drp OPR BID RF: 0 timolol maleate [Timoptic] 0.5 % drops 1 drp OPR BID RF: 0 dorzolamide [Trusopt] 2 % drops 1 drp OPL TID RF: 0 rosuvastatin [Crestor] 5 mg tablet 5 mg PO HS RF: 0 Discontinued Ozempic 0.25 mg or 0.5 mg(2 mg/1.5 mL) pen injector 0.25 mg SUBCUT WK RF: 0 Discharge Orders: Discharge Order (Routine); Ordered 11/20/20 Ordered By: Arnie Gaxiola/Other Patient Handouts: A1C, Managing Type 2 Diabetes, Special Foot [facility] for Diabetes Admission Data Admit Date/Time: 11/18/20 17:23 Attending Provider: Arnie Thompson Admit Provider: Wilver Aguirre Primary Care Provider: Chucho Phoenix Other Interventions: Discharge Summary Assessment (RN) Last Done: 11/20/20 10:02 Coding Level of Care Code D/C DAY MANAGEMENT >30 MINS Diagnoses Pancreatitis K85.90 Acute pancreatitis complication: no infection or necrosis Chronicity: acute Pancreatitis type: unspecified pancreatitis type Portal vein thrombosis I81 Type 2 diabetes mellitus E11.9 Hypertension I10
== END 2020-11-20 10:04 | disposition home or self-care (01) | DRG 438 ==
LOC: ED 13:47 → SUATTDRO 17:23 → 2N 17:23 → 3W 11-19 22:29
DX: Z79.84 Long term (current) use of oral hypoglycemic drugs; K85.30 Drug induced acute pancreatitis without necrosis or infection; F17.210 Nicotine dependence, cigarettes, uncomplicated; E11.9 Type 2 diabetes mellitus without complications; I81 Portal vein thrombosis; T38.3X5A Adverse effect of insulin and oral hypoglycemic [antidiabetic] drugs, initial encounter; Y92.019 Unspecified place in single-family (private) house as the place of occurrence of the external cause